=== PATIENT | female | born 1965 | race African-American/Black ===

== ENCOUNTER 2016-11-29 12:43 | Observation (INO) | payer SELFPAY ==
--- NOTE | 2016-11-29 15:42 | DR.H&P ---
H&P - History & Physical for Day of: H&P Date: 11/29/16 - Chief Complaint Chief Complaint: ABD PAIN WITH NAUSEA AND VOMITING - Allergies Allergies/Adverse Reactions: Allergies Allergy/AdvReac Type Severity Reaction Status Date / Time No Known Drug Allergy Allergy Verified 10/21/16 14:28 - History of Present Illness History of Present Illness: THE PATIENT IS A 51YO BF WHO PRESENTED TO [facility] WITH COMPLAINT OF ABDOMINAL PAIN WITH NAUSEA AND VOMITING WITH INABILITY TO KEEP ANYTHING DOWN INCLUDING MEDS SINCE LAST NIGHT. STATES SHE HAS BEEN TAKING PHENERGAN. STATES THAT SHE IS NOT EATING FOR FEAR OF PAIN AND NAUSEA. PATIENT COMPLAINS OF PAIN TO RUQ WITH PAIN GOING THROUGH TO BACK. BP 174 /128. DID IMPROVE TO 184/115 AFTER CLONIDINE 0.2MG . - Past Medical History Past Medical History: Depression, GERD, Hyperthyroidism Additional Medical History: RECURRENT ABD PAIN WITH NAUSEA AND VOMITING. - Past Surgical History Surgical History: , Hysterectomy - Family History Family Medical History: Hypertension - Social History Does patient currently use any type of tobacco product: No Have you used tobacco products in the last 12 months: No Type of Tobacco Use: None Does any household member use tobacco: No Alcohol Use: None Drug Use: None - Review of Systems Constitutional: Weakness, Malaise Eyes: No Symptoms Reported ENT: No Symptoms Reported Respiratory: No Symptoms Reported Cardiovascular: No Symptoms Reported Gastrointestinal: Nausea, Vomiting, Abdominal Pain Genitourinary: No Symptoms Reported Musculoskeletal: Leg Pain Skin: No Symptoms Reported Neurological: Numbness (TO RIGHT TOES) - Physical Exam Vital Signs: Blood Pressure [Right Arm] 136/85 Blood Pressure 136/85 Oriented: Normal Eyes: Normal Ear: Normal Nose: Normal Throat: Normal Respiratory: Clear Throughout Cardiovascular: Normal : Normal Auscultation: Bowel Sounds: Normal Palpation: Normal Tenderness: Diffuse, RUQ, Epigastric, Moderate Skin: Normal Musculoskeletal: Normal Psychiatric: Normal Mood Description: Appropriate Affect: Quiet Speech Pattern: Clear - Assessment/Plan (1) Nausea and vomiting Qualifiers: Vomiting type: V Vomiting Intractability: intractable Status: Acute Plan: LABS, KUB, US GB, PHENERGAN AND ZOFRAN IV (2) Hypertensive urgency Status: Acute Plan: IV ANTIHYPERTENSIVES (3) Abdominal pain Qualifiers: Abdominal location: right upper quadrant Qualified Code(s): R10.11 - Right upper quadrant pain Status: Acute Plan: LABS, KUB, US GB, PHENERGAN AND ZOFRAN IV
[2016-11-29 16:26] LABS: ALANINE AMINOTRANSFERASE 47 Units/L (12-78); ALBUMIN 3.6 g/dL (3.4-5.0); ALKALINE PHOSPHATASE 82 Units/L (46-116); AMYLASE 84 Units/L (25-115); ASPARTATE AMINO TRANSFERASE 39 Units/L (15-37); BLOOD UREA NITROGEN 14 mg/dL (7-18); CALCIUM 8.9 mg/dL (8.5-10.1); CARBON DIOXIDE 29.5 mmol/L (21-32); CHLORIDE 107 mmol/L (98-107); CREATININE 1.01 mg/dL (0.55-1.02); GLUCOSE 103 mg/dL (65-99); LIPASE 230 Units/L (73-393); SODIUM 144 mmol/L (136-145); TOTAL PROTEIN 7.2 g/dL (6.4-8.2); eGFR BLACK RACES > 60 (>60); eGFR NON BLACK RACES > 60 (>60)
[2016-11-29] MEDS: NS 1000 ML 1,000 ML IV SCH (16:29)
[2016-11-29] MEDS: PROTONIX INJ 40 MG VIAL 40 MG in NS 50 ML IV 50 ML IV SCH (16:29)
[2016-11-29] MEDS: PHENERGAN INJ 25 MG IVP PRN (16:30)
--- NOTE | 2016-11-29 16:35 | RAD ---
Acute abdominal series with single view chest Indication: Abdominal pain Comparison: CT 10/21/2016 Findings: A few air-fluid levels are seen on the upright view within the right abdomen. No marked sm all bowel dilation is appreciated, although there is a relative paucity small bowel gas, limiting ev aluation. Gas and stool is present within the normal caliber colon. No free air identified. The heart size is normal and the lungs are clear. Impression: Nonspecific air-fluid levels in the right hemiabdomen, with gas and stool in the normal caliber colo n. Low-grade partial distal small bowel obstruction cannot be excluded. Reported By:
[2016-11-29 16:47] LABS: BASOPHILS % (AUTO) 0.9 % (0.2-1.0); EOSINOPHILS # (AUTO) 0.1 x10^3/uL (0.0-0.2); HEMATOCRIT 36.8 % (36.0-47.0); HEMOGLOBIN 12.9 g/dL (12.0-16.0); LYMPHOCYTES # (AUTO) 2.3 X10^3/uL (1.3-2.9); LYMPHOCYTES % (AUTO) 46.2 % (21.0-51.0); MEAN CORPUSCULAR HEMOGLOBIN 30.1 pg (27.0-34.0); MEAN CORPUSCULAR HGB CONC 35.2 g/dL (33.0-35.0); MEAN CORPUSCULAR VOLUME 85.7 fL (80.0-100.0); MEAN PLATELET VOLUME 8.3 fL (7.4-11.0); MONOCYTES # (AUTO) 0.4 x10^3/uL (0.3-0.8); NEUTROPHILS % (AUTO) 41.9 % (42.0-75.0); PLATELET COUNT 201 X10^3/uL (150.0-450.0); RED BLOOD COUNT 4.29 X10^6/uL (3.5-5.4); RED CELL DISTRIBUTION WIDTH 15.1 % (11.6-16.5); WHITE BLOOD COUNT 4.9 X10^3/uL (3.6-10.0)
[2016-11-29 18:08] LABS: BILIRUBIN,URINE NEGATIVE (NEGATIVE); BLOOD/HEMOGLOBIN,URINE 2+ (NEGATIVE); GLUCOSE, URINE NEGATIVE (NEGATIVE); KETONES,URINE NEGATIVE (NEGATIVE); LEUKOCYTE ESTERASE ,URINE 1+ (NEGATIVE); NITRITES,URINE NEGATIVE (NEGATIVE); PROTEIN,URINE 1+ (NEGATIVE); UROBILINOGEN,URINE 1+ (NORMAL)
[2016-11-29 18:15] LABS: APPEARANCE,URINE HAZY (CLEAR); BACTERIA,URINE TRACE /HPF (NEGATIVE); COLOR,URINE YELLOW (YELLOW); RBC,URINE 0-2 /HPF (NEGATIVE); SQUAMOUS EPITHELIAL CELL,UR RARE /HPF (NEGATIVE)
[2016-11-29] MEDS: MORPHINE SULFATE INJ 2 MG IVP PRN (20:23)
[2016-11-29] MEDS: ZOFRAN INJ 4 MG VIAL IVP PRN (20:24)
[2016-11-29] MEDS ORDERED: NORMODYNE INJ 20 MG VIAL ONE ×2 (22:56→23:29)
[2016-11-29] MEDS: NORMODYNE INJ 20 MG VIAL IV PRN ×4 (23:00→23:55)
[2016-11-30] MEDS: NORMODYNE INJ 20 MG VIAL IV PRN ×5 (00:10→08:54)
[2016-11-30] MEDS ORDERED: NORMODYNE INJ 20 MG VIAL ONE (00:43)
[2016-11-30] MEDS: MORPHINE SULFATE INJ 2 MG IVP PRN ×2 (02:40→08:54)
[2016-11-30] MEDS: PHENERGAN INJ 25 MG IVP PRN ×3 (02:41→16:52)
--- NOTE | 2016-11-30 06:16 | US ---
HISTORY: Right upper quadrant pain Study: Right upper quadrant ultrasound Comparison: None Technique: Multiple grayscale sonographic images were obtained. Findings: Liver was normal in size and configuration and without focal cyst, mass, or biliary ductal dilatatio n. No gallstones are present within the gallbladder. Gallbladder wall thickness was normal. The comm on duct measured 3.9 millimeters. The right kidney was unobstructed. The head and body of the pancre as were normal. The tail was obscured by overlying bowel gas. IMPRESSION: No significant abnormality identified Reported By:
[2016-11-30] MEDS: NS 1000 ML 1,000 ML IV SCH ×3 (06:27→19:25)
[2016-11-30] MEDS: ZOFRAN INJ 4 MG VIAL IVP PRN (08:53)
[2016-11-30] MEDS: PROTONIX INJ 40 MG VIAL 40 MG in NS 50 ML IV 50 ML IV SCH (08:53)
[2016-11-30] MEDS: ROCEPHIN VIAL 1 GM 1 GM in NS 50 ML IV + SPIKE MINIBAG* 50 ML IV SCH (10:09)
[2016-11-30] MEDS ORDERED: ZESTRIL TAB 20 MG PO ONE (10:31)
[2016-11-30 10:55] LABS: BASOPHILS # (AUTO) 0.1 X10^3/uL (0.0-0.1); BASOPHILS % (AUTO) 1.1 % (0.2-1.0); EOSINOPHILS # (AUTO) 0.1 x10^3/uL (0.0-0.2); EOSINOPHILS % (AUTO) 1.6 % (0.9-2.9); HEMATOCRIT 34.3 % (36.0-47.0); HEMOGLOBIN 12.2 g/dL (12.0-16.0); LYMPHOCYTES # (AUTO) 2.1 X10^3/uL (1.3-2.9); LYMPHOCYTES % (AUTO) 43.9 % (21.0-51.0); MEAN CORPUSCULAR HEMOGLOBIN 30.3 pg (27.0-34.0); MEAN CORPUSCULAR HGB CONC 35.5 g/dL (33.0-35.0); MEAN CORPUSCULAR VOLUME 85.4 fL (80.0-100.0); MEAN PLATELET VOLUME 8.1 fL (7.4-11.0); MONOCYTES # (AUTO) 0.5 x10^3/uL (0.3-0.8); MONOCYTES % (AUTO) 9.6 % (0.0-13.0); NEUTROPHILS # (AUTO) 2.1 x10^3/uL (2.2-4.8); NEUTROPHILS % (AUTO) 43.8 % (42.0-75.0); PLATELET COUNT 167 X10^3/uL (150.0-450.0); RED BLOOD COUNT 4.02 X10^6/uL (3.5-5.4); RED CELL DISTRIBUTION WIDTH 15.4 % (11.6-16.5); WHITE BLOOD COUNT 4.8 X10^3/uL (3.6-10.0)
[2016-11-30 11:09] LABS: ALANINE AMINOTRANSFERASE 36 Units/L (12-78); ALBUMIN 3.1 g/dL (3.4-5.0); ALKALINE PHOSPHATASE 66 Units/L (46-116); ASPARTATE AMINO TRANSFERASE 26 Units/L (15-37); BLOOD UREA NITROGEN 10 mg/dL (7-18); CALCIUM 8.2 mg/dL (8.5-10.1); CARBON DIOXIDE 25.4 mmol/L (21-32); CHLORIDE 108 mmol/L (98-107); COR CA(FOR HYPOALB) 8.9 mg/dL (8.5-10.1); CREATININE 0.86 mg/dL (0.55-1.02); GLUCOSE 93 mg/dL (65-99); MAGNESIUM 1.5 mg/dL (1.7-2.9); SODIUM 143 mmol/L (136-145); TOTAL PROTEIN 6.1 g/dL (6.4-8.2); eGFR BLACK RACES > 60 (>60); eGFR NON BLACK RACES > 60 (>60)
[2016-11-30] MEDS ORDERED: ZESTRIL TAB 20 MG ONE (11:16)
[2016-11-30] MEDS ORDERED: CATAPRES TAB 0.1 MG PO SCH (12:00)
--- NOTE | 2016-11-30 13:28 | RAD ---
HISTORY: Hypertensive urgency. Epigastric pain. Study: Chest one view Comparison: Acute abdominal series from November 29, 2016. Findings: The trachea is midline. The cardiac silhouette is enlarged. The lungs are clear without focal infi ltrate or effusion. The bony thorax is unremarkable. IMPRESSION: 1. No acute pulmonary abnormality. 2. Cardiomegaly. Reported By:
--- NOTE | 2016-11-30 13:32 | RAD ---
AP abdomen Indication: Right upper quadrant and epigastric pain. Comparison: 11/29/2016 Findings: The bowel gas pattern is normal. Stool and gas is present within the normal caliber colon. No free air is seen. Impression: No acute abdominal process. Reported By:
[2016-11-30] MEDS: LEVSIN/MAALOX/LIDOC VISC PO PRN ×2 (14:13→17:46)
[2016-11-30] MEDS ORDERED: PHENERGAN INJ 25 MG ONE (16:47)
[2016-11-30] MEDS: NORCO 7.5/325 MG TAB PO PRN ×2 (16:53→23:41)
[2016-11-30] MEDS ORDERED: LEVSIN/MAALOX/LIDOC VISC ONE (17:42)
[2016-11-30] MEDS: K-DUR TAB 20 MEQ PO SCH (17:46)
[2016-11-30] MEDS: CATAPRES TAB 0.1 MG PO SCH ×2 (17:46→20:50)
[2016-11-30 17:55] VITALS: BMI 17.2
--- NOTE | 2016-11-30 18:24 | PCM.PROG ---
Progress Note - Progress Note for Day of Date: 12/07/16 - Subjective Subjective: Patient continues to complain of epigastric pain. Patient is a 51- year-old black female who was admitted one day ago for a GI workup including gallbladder ultrasound and HIDA scan. Patient has had complaints of epigastric pain for several weeks treated for GERD without improvement. Patient also has malignant hypertension currently receiving IV labetalol as well as by mouth lisinopril and Catapres. Plan to obtain an EKG and chest x-ray. Patient scheduled for HIDA scan every morning. We'll repeat a.m. labs and continue pain and blood pressure monitoring - Past Medical Family Social History Past Med/Fam/Surg Hx: No changes since H&P Allergies: Allergies No Known Drug Allergy Allergy (Verified 10/21/16 14:28) - Review of Systems ROS: No change since H&P - Vital Signs and I&O's Vital Signs: Temperature 98 F Pulse Rate [Left Brachial] 74 Respiratory Rate 18 Blood Pressure [Left Arm] 157/91 Blood Pressure [Right Arm] 165/104 Blood Pressure 136/85 O2 Sat by Pulse Oximetry 97 Intake and Output: Intake & Output 11/28/16 11/29/16 11/30/16 12/01/16 11:59 11:59 11:59 11:59 Intake Total 1490 850 Output Total 4 Balance 1486 850 - Physical Exam Oriented: Normal Eyes: Normal Ear: Normal Nose: Normal Throat: Normal Respiratory: Wheezes (mild lower exp wheezes) Cardiovascular: Normal : Normal Auscultation: Bowel Sounds: Normal Tenderness: Diffuse, RUQ, Epigastric, Moderate Skin: Normal Musculoskeletal: Normal Psychiatric: Normal Mood Description: Appropriate Affect: Quiet Speech Pattern: Clear, Appropriate, Unclear - Laboratory and Diagnostics Result Diagrams: 11/30/16 10:45 11/30/16 10:45 Labs: Laboratory WBC 4.8 X10^3/uL (3.6-10.0) 11/30/16 10:45 RBC 4.02 X10^6/uL (3.5-5.4) 11/30/16 10:45 Hgb 12.2 g/dL (12.0-16.0) 11/30/16 10:45 Hct 34.3 % (36.0-47.0) L 11/30/16 10:45 MCV 85.4 fL (80.0-100.0) 11/30/16 10:45 MCH 30.3 pg (27.0-34.0) 11/30/16 10:45 MCHC 35.5 g/dL (33.0-35.0) H 11/30/16 10:45 RDW 15.4 % (11.6-16.5) 11/30/16 10:45 Plt Count 167 X10^3/uL (150.0-450.0) 11/30/16 10:45 MPV 8.1 fL (7.4-11.0) 11/30/16 10:45 Neut % 43.8 % (42.0-75.0) 11/30/16 10:45 Lymph % 43.9 % (21.0-51.0) 11/30/16 10:45 [place] % 9.6 % (0.0-13.0) 11/30/16 10:45 Eos % 1.6 % (0.9-2.9) 11/30/16 10:45 Baso % 1.1 % (0.2-1.0) H 11/30/16 10:45 Neut # 2.1 x10^3/uL (2.2-4.8) L 11/30/16 10:45 Lymph # 2.1 X10^3/uL (1.3-2.9) 11/30/16 10:45 [place] # 0.5 x10^3/uL (0.3-0.8) 11/30/16 10:45 Eos # 0.1 x10^3/uL (0.0-0.2) 11/30/16 10:45 Baso # 0.1 X10^3/uL (0.0-0.1) 11/30/16 10:45 Absolute Nucleated RBC 0.1 /100WBC 11/30/16 10:45 Sodium 143 mmol/L (136-145) 11/30/16 10:45 Corrected Sodium TNP 11/30/16 10:45 Potassium 3.5 mmol/L (3.5-5.1) 11/30/16 10:45 Chloride 108 mmol/L (98-107) H 11/30/16 10:45 Carbon Dioxide 25.4 mmol/L (21-32) 11/30/16 10:45 BUN 10 mg/dL (7-18) 11/30/16 10:45 Creatinine 0.86 mg/dL (0.55-1.02) 11/30/16 10:45 Est GFR (MDRD) Af Amer > 60 (>60) 11/30/16 10:45 Est GFR (MDRD) Non-Af > 60 (>60) 11/30/16 10:45 Glucose 93 mg/dL (65-99) 11/30/16 10:45 Calcium 8.2 mg/dL (8.5-10.1) L 11/30/16 10:45 Corrected Calcium 8.9 mg/dL (8.5-10.1) 11/30/16 10:45 Magnesium 1.5 mg/dL (1.7-2.9) L 11/30/16 10:45 Total Bilirubin 0.40 mg/dL (0.2-1.0) 11/30/16 10:45 AST 26 Units/L (15-37) 11/30/16 10:45 ALT 36 Units/L (12-78) 11/30/16 10:45 Alkaline Phosphatase 66 Units/L (46-116) 11/30/16 10:45 Total Protein 6.1 g/dL (6.4-8.2) L 11/30/16 10:45 Albumin 3.1 g/dL (3.4-5.0) L 11/30/16 10:45 Globulin 3.0 g/dL (2.5-4.5) 11/30/16 10:45 Albumin/Globulin Ratio 1.0 Ratio (1.1-2.1) L 11/30/16 10:45 Amylase 84 Units/L (25-115) 11/29/16 16:00 Lipase 230 Units/L (73-393) 11/29/16 16:00 Specimen Type Clean catch urine 11/29/16 17:56 Urine Color Yellow (YELLOW) 11/29/16 17:56 Urine Appearance Hazy (CLEAR) 11/29/16 17:56 Urine pH 6.0 (5.0 - 8.0) 11/29/16 17:56 Ur Specific [place] 1.020 (1.000-1.030) 11/29/16 17:56 Urine Protein 1+ (NEGATIVE) 11/29/16 17:56 Urine Glucose (UA) Negative (NEGATIVE) 11/29/16 17:56 Urine Ketones Negative (NEGATIVE) 11/29/16 17:56 Urine Occult Blood 2+ (NEGATIVE) 11/29/16 17:56 Urine Nitrite Negative (NEGATIVE) 11/29/16 17:56 Urine Bilirubin Negative (NEGATIVE) 11/29/16 17:56 Urine Urobilinogen 1+ (NORMAL) 11/29/16 17:56 Ur Leukocyte Esterase 1+ (NEGATIVE) 11/29/16 17:56 Urine RBC 0-2 /HPF (NEGATIVE) 11/29/16 17:56 Urine WBC 0-2 /HPF (NEGATIVE) 11/29/16 17:56 Ur Squamous Epith Cells Rare /HPF (NEGATIVE) 11/29/16 17:56 Urine Bacteria Trace /HPF (NEGATIVE) 11/29/16 17:56 Ur Culture Indicated? No/not indicated 11/29/16 17:56 - Plan (1) Abdominal pain Status: Acute Qualifiers: Abdominal location: right upper quadrant Qualified Code(s): R10.11 - Right upper quadrant pain Plan: AM LABS, HIDA SCAN Q AM. PHENERGAN AND ZOFRAN IV (2) Hypertensive urgency Status: Acute Plan: IV ANTIHYPERTENSIVES (3) Nausea and vomiting Status: Acute Qualifiers: Vomiting type: V Vomiting Intractability: intractable Plan: PHENERGAN AND ZOFRAN IV (4) GERD (gastroesophageal reflux disease) Status: Acute Qualifiers: Esophagitis presence: E Plan: CONTINUE PROTONIX AND GI COCKTAIL
[2016-11-30] MEDS: NORVASC TAB 5 MG PO SCH (19:24)
[2016-11-30] MEDS: NEURONTIN CAP 100 MG PO SCH (20:53)
[2016-12-01] MEDS: CATAPRES TAB 0.1 MG PO SCH ×4 (03:38→20:38)
[2016-12-01] MEDS: NS 1000 ML 1,000 ML IV SCH ×2 (05:14→21:08)
[2016-12-01] MEDS ORDERED: LEVSIN/MAALOX/LIDOC VISC ONE (05:37)
[2016-12-01] MEDS ORDERED: PHENERGAN INJ 25 MG ONE (05:37)
[2016-12-01] MEDS: LEVSIN/MAALOX/LIDOC VISC PO PRN (05:45)
[2016-12-01] MEDS: PHENERGAN INJ 25 MG IVP PRN ×2 (05:45→19:54)
[2016-12-01 06:20] LABS: BASOPHILS # (AUTO) 0.1 X10^3/uL (0.0-0.1); BASOPHILS % (AUTO) 1.4 % (0.2-1.0); EOSINOPHILS # (AUTO) 0.1 x10^3/uL (0.0-0.2); EOSINOPHILS % (AUTO) 3.2 % (0.9-2.9); LYMPHOCYTES # (AUTO) 1.7 X10^3/uL (1.3-2.9); MEAN CORPUSCULAR HEMOGLOBIN 30.5 pg (27.0-34.0); MEAN CORPUSCULAR HGB CONC 35.4 g/dL (33.0-35.0); MEAN CORPUSCULAR VOLUME 86.2 fL (80.0-100.0); MEAN PLATELET VOLUME 8.4 fL (7.4-11.0); MONOCYTES # (AUTO) 0.4 x10^3/uL (0.3-0.8); MONOCYTES % (AUTO) 7.8 % (0.0-13.0); NEUTROPHILS # (AUTO) 2.3 x10^3/uL (2.2-4.8); NEUTROPHILS % (AUTO) 49.6 % (42.0-75.0); PLATELET COUNT 160 X10^3/uL (150.0-450.0); RED BLOOD COUNT 3.94 X10^6/uL (3.5-5.4); RED CELL DISTRIBUTION WIDTH 15.4 % (11.6-16.5); WHITE BLOOD COUNT 4.6 X10^3/uL (3.6-10.0)
[2016-12-01 06:36] LABS: ALANINE AMINOTRANSFERASE 39 Units/L (12-78); ALKALINE PHOSPHATASE 65 Units/L (46-116); ASPARTATE AMINO TRANSFERASE 25 Units/L (15-37); BLOOD UREA NITROGEN 7 mg/dL (7-18); CALCIUM 8.1 mg/dL (8.5-10.1); CARBON DIOXIDE 25.2 mmol/L (21-32); CHLORIDE 109 mmol/L (98-107); COR CA(FOR HYPOALB) 8.9 mg/dL (8.5-10.1); CREATININE 0.75 mg/dL (0.55-1.02); GLUCOSE 103 mg/dL (65-99); SODIUM 142 mmol/L (136-145); TOTAL PROTEIN 6.1 g/dL (6.4-8.2); eGFR BLACK RACES > 60 (>60); eGFR NON BLACK RACES > 60 (>60)
[2016-12-01] MEDS ORDERED: PATIENT'S HOME MEDICATION RESPIRATORY (Potassium Chloride [Potassium Chloride Er] 20 MEQ) PO SCH (09:00)
[2016-12-01] MEDS: NORCO 7.5/325 MG TAB PO PRN (11:41)
[2016-12-01] MEDS: ROCEPHIN VIAL 1 GM 1 GM in NS 50 ML IV + SPIKE MINIBAG* 50 ML IV SCH (11:42)
[2016-12-01] MEDS: NORVASC TAB 5 MG PO SCH (11:43)
[2016-12-01] MEDS: PROTONIX INJ 40 MG VIAL 40 MG in NS 50 ML IV 50 ML IV SCH (11:43)
[2016-12-01] MEDS: NEURONTIN CAP 100 MG PO SCH ×2 (11:43→20:38)
[2016-12-01] MEDS ORDERED: ZOFRAN INJ 4 MG VIAL 16 MG, ATIVAN INJ 2 MG VIAL 1 MG, DECADRON INJ 10 MG in NS 50 ML I... IV PRN (12:53)
--- NOTE | 2016-12-01 14:12 | NM ---
Indication: Pain. Exam: HIDA scan with ejection fraction . Technique: The patient was injected with 5 mCi of technetium 99 M Choletec IV with dynamic and delay ed images obtained. The patient was given 8 oz of Ensure for the ejection fraction. Findings: There is physiologic uptake throughout the liver with uptake in the gallbladder and small bowel within 1 hr. No focal defects are seen in the liver. The gallbladder ejection fraction was baltazar culated at 12% with normal considered greater than 50%. Impression: Markedly decreased gallbladder ejection fraction otherwise, unremarkable. Reported By:
[2016-12-01] MEDS ORDERED: LR 1000 ML IV 1,000 ML IV ONE (16:03)
[2016-12-01] MEDS ORDERED: DIPRIVAN VIAL ONE (16:08)
[2016-12-01] MEDS ORDERED: VERSED ONE (16:08)
[2016-12-01] MEDS ORDERED: ROBINUL ONE (16:08)
[2016-12-01] MEDS ORDERED: SUPRANE IN ONE (16:08)
[2016-12-01] MEDS ORDERED: NEOSTIGMINE INJ ONE (16:08)
[2016-12-01] MEDS ORDERED: REGLAN INJ 10 MG VIAL ONE (16:08)
[2016-12-01] MEDS ORDERED: NORMODYNE INJ 100 MG VIAL ONE (16:08)
[2016-12-01] MEDS ORDERED: NORCURON INJ 10 MG VIAL ONE (16:08)
[2016-12-01] MEDS ORDERED: DYLOJECT INJ ONE (16:08)
[2016-12-01] MEDS ORDERED: XYLOCAINE 2 % (PLAIN) ONE (16:08)
[2016-12-01] MEDS ORDERED: ZOFRAN INJ 4 MG VIAL ONE (16:08)
[2016-12-01] MEDS ORDERED: QUELICIN (OR ANECTINE) ONE (16:08)
[2016-12-01] MEDS ORDERED: FENTANYL INJ 250 mcg ONE (16:15)
[2016-12-01] MEDS: ANCEF VIAL 1 GM ONE ×2 (16:27→16:55)
[2016-12-01] MEDS: MARCAINE 0.25% WITH EPI IJ ONE ×2 (16:28→17:18)
[2016-12-01] MEDS: XYLOCAINE 1 % (PLAIN) ONE ×2 (16:28→17:18)
[2016-12-01] MEDS: NS 50 ML IV + SPIKE MINIBAG* 50 ML IV ONE ×2 (16:29→16:55)
[2016-12-01] MEDS ORDERED: NS IRRIGATION 1000 ML 1,000 ML IR ONE (17:34)
--- NOTE | 2016-12-01 17:56 | PCM.PROG ---
Progress Note - Progress Note for Day of Date: 12/01/16 - Subjective Subjective: Patient continues to complain of epigastric pain and food intolerance. pt had HIDA scan this am, continue to keep pt NPO until results are back. - Past Medical Family Social History Past Med/Fam/Surg Hx: No changes since H&P Allergies: Allergies No Known Drug Allergy Allergy (Verified 10/21/16 14:28) - Review of Systems ROS: No change since H&P - Vital Signs and I&O's Vital Signs: Temperature 97.9 F Pulse Rate [Left Brachial] 76 Respiratory Rate 20 Blood Pressure [Left Arm] 138/88 Blood Pressure [Right Arm] 165/104 Blood Pressure 136/85 O2 Sat by Pulse Oximetry 100 Intake and Output: Intake & Output 11/29/16 11/30/16 12/01/16 12/02/16 11:59 11:59 11:59 11:59 Intake Total 1490 2990 880 Output Total 4 Balance 1486 2990 880 - Physical Exam Oriented: Normal Eyes: Normal Ear: Normal Nose: Normal Throat: Normal Respiratory: Normal Cardiovascular: Normal : Normal Auscultation: Bowel Sounds: Normal Tenderness: Diffuse, RUQ, Epigastric, Moderate Skin: Normal Musculoskeletal: Normal Psychiatric: Normal Mood Description: Appropriate Affect: Quiet Speech Pattern: Clear, Appropriate - Laboratory and Diagnostics Result Diagrams: 12/01/16 05:45 12/01/16 05:45 Labs: Laboratory WBC 4.6 X10^3/uL (3.6-10.0) 12/01/16 05:45 RBC 3.94 X10^6/uL (3.5-5.4) 12/01/16 05:45 Hgb 12.0 g/dL (12.0-16.0) 12/01/16 05:45 Hct 34.0 % (36.0-47.0) L 12/01/16 05:45 MCV 86.2 fL (80.0-100.0) 12/01/16 05:45 MCH 30.5 pg (27.0-34.0) 12/01/16 05:45 MCHC 35.4 g/dL (33.0-35.0) H 12/01/16 05:45 RDW 15.4 % (11.6-16.5) 12/01/16 05:45 Plt Count 160 X10^3/uL (150.0-450.0) 12/01/16 05:45 MPV 8.4 fL (7.4-11.0) 12/01/16 05:45 Neut % 49.6 % (42.0-75.0) 12/01/16 05:45 Lymph % 38.0 % (21.0-51.0) 12/01/16 05:45 [place] % 7.8 % (0.0-13.0) 12/01/16 05:45 Eos % 3.2 % (0.9-2.9) H 12/01/16 05:45 Baso % 1.4 % (0.2-1.0) H 12/01/16 05:45 Neut # 2.3 x10^3/uL (2.2-4.8) 12/01/16 05:45 Lymph # 1.7 X10^3/uL (1.3-2.9) 12/01/16 05:45 [place] # 0.4 x10^3/uL (0.3-0.8) 12/01/16 05:45 Eos # 0.1 x10^3/uL (0.0-0.2) 12/01/16 05:45 Baso # 0.1 X10^3/uL (0.0-0.1) 12/01/16 05:45 Absolute Nucleated RBC 0.0 /100WBC 12/01/16 05:45 Sodium 142 mmol/L (136-145) 12/01/16 05:45 Corrected Sodium TNP 12/01/16 05:45 Potassium 3.4 mmol/L (3.5-5.1) L 12/01/16 05:45 Chloride 109 mmol/L (98-107) H 12/01/16 05:45 Carbon Dioxide 25.2 mmol/L (21-32) 12/01/16 05:45 BUN 7 mg/dL (7-18) 12/01/16 05:45 Creatinine 0.75 mg/dL (0.55-1.02) 12/01/16 05:45 Est GFR (MDRD) Af Amer > 60 (>60) 12/01/16 05:45 Est GFR (MDRD) Non-Af > 60 (>60) 12/01/16 05:45 Glucose 103 mg/dL (65-99) H 12/01/16 05:45 Calcium 8.1 mg/dL (8.5-10.1) L 12/01/16 05:45 Corrected Calcium 8.9 mg/dL (8.5-10.1) 12/01/16 05:45 Magnesium 1.5 mg/dL (1.7-2.9) L 11/30/16 10:45 Total Bilirubin 0.50 mg/dL (0.2-1.0) 12/01/16 05:45 AST 25 Units/L (15-37) 12/01/16 05:45 ALT 39 Units/L (12-78) 12/01/16 05:45 Alkaline Phosphatase 65 Units/L (46-116) 12/01/16 05:45 Total Protein 6.1 g/dL (6.4-8.2) L 12/01/16 05:45 Albumin 3.0 g/dL (3.4-5.0) L 12/01/16 05:45 Globulin 3.1 g/dL (2.5-4.5) 12/01/16 05:45 Albumin/Globulin Ratio 1.0 Ratio (1.1-2.1) L 12/01/16 05:45 Amylase 84 Units/L (25-115) 11/29/16 16:00 Lipase 230 Units/L (73-393) 11/29/16 16:00 Specimen Type Clean catch urine 11/29/16 17:56 Urine Color Yellow (YELLOW) 11/29/16 17:56 Urine Appearance Hazy (CLEAR) 11/29/16 17:56 Urine pH 6.0 (5.0 - 8.0) 11/29/16 17:56 Ur Specific [place] 1.020 (1.000-1.030) 11/29/16 17:56 Urine Protein 1+ (NEGATIVE) 11/29/16 17:56 Urine Glucose (UA) Negative (NEGATIVE) 11/29/16 17:56 Urine Ketones Negative (NEGATIVE) 11/29/16 17:56 Urine Occult Blood 2+ (NEGATIVE) 11/29/16 17:56 Urine Nitrite Negative (NEGATIVE) 11/29/16 17:56 Urine Bilirubin Negative (NEGATIVE) 04/04/17 17:56 Urine Urobilinogen 1+ (NORMAL) 11/29/16 17:56 Ur Leukocyte Esterase 1+ (NEGATIVE) 11/29/16 17:56 Urine RBC 0-2 /HPF (NEGATIVE) 11/29/16 17:56 Urine WBC 0-2 /HPF (NEGATIVE) 11/29/16 17:56 Ur Squamous Epith Cells Rare /HPF (NEGATIVE) 11/29/16 17:56 Urine Bacteria Trace /HPF (NEGATIVE) 11/29/16 17:56 Ur Culture Indicated? No/not indicated 11/29/16 17:56 Stool Description 50g,brown,formed 11/30/16 19:08 Stl Occult Blood (IFOB) Negative (NEGATIVE) 11/30/16 19:08 - Plan (1) Abdominal pain Status: Acute Qualifiers: Abdominal location: right upper quadrant Qualified Code(s): R10.11 - Right upper quadrant pain Plan: ssuspect biliary dyskinesia, continue nothing by mouth status, HIDA scan this a.m. plan to consult surgeon, Dr. Saunders, if abnormal findings. She needed IV hydration, pain and nausea control (2) Hypertensive urgency Status: Acute Plan: IV ANTIHYPERTENSIVES (3) Nausea and vomiting Status: Acute Qualifiers: Vomiting type: V Vomiting Intractability: intractable Plan: PHENERGAN AND ZOFRAN IV (4) GERD (gastroesophageal reflux disease) Status: Chronic Qualifiers: Esophagitis presence: E Plan: CONTINUE PROTONIX AND GI COCKTAIL
[2016-12-01] MEDS: DILAUDID INJ IVP PRN ×2 (18:10→18:15)
[2016-12-01] MEDS ORDERED: REGLAN INJ 10 MG VIAL IVP PRN (18:10)
[2016-12-01] MEDS ORDERED: ZOFRAN INJ 4 MG VIAL IVP PRN (18:10)
[2016-12-01] MEDS ORDERED: BENADRYL INJ 50 MG VIAL IVP PRN (18:10)
[2016-12-01] MEDS ORDERED: PHENERGAN INJ 25 MG IVP PRN (18:10)
[2016-12-01] MEDS: MORPHINE SULFATE INJ 2 MG IVP PRN (19:56)
[2016-12-01] MEDS: K-DUR TAB 20 MEQ PO SCH (21:08)
[2016-12-02] MEDS ORDERED: HEPARIN SODIUM INJ 5000 UNITS IVP SCH (00:01)
[2016-12-02] MEDS: MORPHINE SULFATE INJ 2 MG IVP PRN ×2 (00:22→05:32)
[2016-12-02] MEDS: HEPARIN SODIUM INJ 5000 UNITS SC SCH ×2 (01:12→05:27)
[2016-12-02] MEDS: PHENERGAN INJ 25 MG IVP PRN (02:33)
[2016-12-02] MEDS: CATAPRES TAB 0.1 MG PO SCH ×3 (02:33→14:01)
[2016-12-02 06:59] LABS: ALANINE AMINOTRANSFERASE 63 Units/L (12-78); ALBUMIN 3.5 g/dL (3.4-5.0); ALKALINE PHOSPHATASE 76 Units/L (46-116); ASPARTATE AMINO TRANSFERASE 44 Units/L (15-37); BLOOD UREA NITROGEN 12 mg/dL (7-18); CALCIUM 9.3 mg/dL (8.5-10.1); CHLORIDE 103 mmol/L (98-107); COR NA(FOR HYPERGLY) 138 mmol/L (136-145); CREATININE 0.92 mg/dL (0.55-1.02); GLUCOSE 120 mg/dL (65-99); SODIUM 138 mmol/L (136-145); TOTAL PROTEIN 7.1 g/dL (6.4-8.2); eGFR BLACK RACES > 60 (>60); eGFR NON BLACK RACES > 60 (>60)
[2016-12-02 07:07] LABS: BASOPHILS # (AUTO) 0.1 X10^3/uL (0.0-0.1); BASOPHILS % (AUTO) 0.8 % (0.2-1.0); EOSINOPHILS % (AUTO) 0.2 % (0.9-2.9); HEMATOCRIT 38.7 % (36.0-47.0); HEMOGLOBIN 13.5 g/dL (12.0-16.0); LYMPHOCYTES # (AUTO) 1.4 X10^3/uL (1.3-2.9); LYMPHOCYTES % (AUTO) 22.7 % (21.0-51.0); MEAN CORPUSCULAR HEMOGLOBIN 30.3 pg (27.0-34.0); MEAN CORPUSCULAR HGB CONC 34.9 g/dL (33.0-35.0); MEAN CORPUSCULAR VOLUME 86.9 fL (80.0-100.0); MEAN PLATELET VOLUME 8.6 fL (7.4-11.0); MONOCYTES # (AUTO) 0.4 x10^3/uL (0.3-0.8); MONOCYTES % (AUTO) 6.5 % (0.0-13.0); NEUTROPHILS # (AUTO) 4.2 x10^3/uL (2.2-4.8); NEUTROPHILS % (AUTO) 69.8 % (42.0-75.0); PLATELET COUNT 171 X10^3/uL (150.0-450.0); RED BLOOD COUNT 4.45 X10^6/uL (3.5-5.4); RED CELL DISTRIBUTION WIDTH 15.3 % (11.6-16.5); WHITE BLOOD COUNT 6.1 X10^3/uL (3.6-10.0)
[2016-12-02] MEDS: K-DUR TAB 20 MEQ PO SCH (08:29)
[2016-12-02] MEDS: NEURONTIN CAP 100 MG PO SCH (08:31)
[2016-12-02] MEDS: NORVASC TAB 5 MG PO SCH (08:35)
[2016-12-02] MEDS: PROTONIX INJ 40 MG VIAL 40 MG in NS 50 ML IV 50 ML IV SCH (08:35)
[2016-12-02] MEDS: ROCEPHIN VIAL 1 GM 1 GM in NS 50 ML IV + SPIKE MINIBAG* 50 ML IV SCH (08:36)
[2016-12-02] MEDS: PERCOCET TAB 5/325 MG PO PRN ×2 (08:39→13:57)
[2016-12-02 12:30] VITALS: BP 160/98
[2016-12-02] MEDS: NS 1000 ML 1,000 ML IV SCH (13:58)
--- NOTE | 2016-12-02 16:11 | PCM.DCPLAN ---
Discharge Summary - Admission Date Date of Admission: 11/29/16 - Discharge Date Discharge Date: 12/02/16 - Admission Diagnoses (1) Abdominal pain Status: Acute (2) Hypertensive urgency Status: Acute (3) Nausea and vomiting Status: Acute (4) GERD (gastroesophageal reflux disease) Status: Chronic - Discharge Diagnoses Discharge Diagnosis: same as admission - Discharge Medications Discharge Medications: Hydrocodone-Acet 7.5 mg/325 mg [NORCO 7.5 MG/325 MG *] 1 tab PO BID PRN [History] Omeprazole [PRILOSEC 20 MG *] 20 mg PO DAILY 11/30/16 [History] Promethazine HCl [PHENERGAN TAB 25 MG *] 25 mg PO Q6H PRN 11/30/16 [History] Amlodipine Besylate [NORVASC 5 MG *] 5 mg PO DAILY #30 tab 12/02/16 [Rx] Oxycodone/Acet 5 mg/325 mg [PERCOCET 5/325 MG *] 1 - 2 tab PO Q4-6H PRN #30 tab 12/02/16 [Rx] - Hospital Course Vital Signs: Temperature 97.7 F Pulse Rate [Left Brachial] 78 Pulse Rate 74 Respiratory Rate 18 Blood Pressure [Left Arm] 160/98 Blood Pressure [Right Arm] 165/104 Blood Pressure 169/96 O2 Sat by Pulse Oximetry 100 Latest Lab Results: Laboratory Last Values WBC 6.1 X10^3/uL (3.6-10.0) 12/02/16 05:15 RBC 4.45 X10^6/uL (3.5-5.4) 12/02/16 05:15 Hgb 13.5 g/dL (12.0-16.0) 12/02/16 05:15 Hct 38.7 % (36.0-47.0) 12/02/16 05:15 MCV 86.9 fL (80.0-100.0) 12/02/16 05:15 MCH 30.3 pg (27.0-34.0) 12/02/16 05:15 MCHC 34.9 g/dL (33.0-35.0) 12/02/16 05:15 RDW 15.3 % (11.6-16.5) 12/02/16 05:15 Plt Count 171 X10^3/uL (150.0-450.0) 12/02/16 05:15 MPV 8.6 fL (7.4-11.0) 12/02/16 05:15 Neut % 69.8 % (42.0-75.0) 12/02/16 05:15 Lymph % 22.7 % (21.0-51.0) 12/02/16 05:15 [place] % 6.5 % (0.0-13.0) 12/02/16 05:15 Eos % 0.2 % (0.9-2.9) L 12/02/16 05:15 Baso % 0.8 % (0.2-1.0) 12/02/16 05:15 Neut # 4.2 x10^3/uL (2.2-4.8) 12/02/16 05:15 Lymph # 1.4 X10^3/uL (1.3-2.9) 12/02/16 05:15 [place] # 0.4 x10^3/uL (0.3-0.8) 12/02/16 05:15 Eos # 0.0 x10^3/uL (0.0-0.2) 12/02/16 05:15 Baso # 0.1 X10^3/uL (0.0-0.1) 12/02/16 05:15 Absolute Nucleated RBC 0.1 /100WBC 12/02/16 05:15 Sodium 138 mmol/L (136-145) 12/02/16 05:15 Corrected Sodium 138 mmol/L (136-145) 12/02/16 05:15 Potassium 3.9 mmol/L (3.5-5.1) 12/02/16 05:15 Chloride 103 mmol/L (98-107) 12/02/16 05:15 Carbon Dioxide 24.0 mmol/L (21-32) 12/02/16 05:15 BUN 12 mg/dL (7-18) 12/02/16 05:15 Creatinine 0.92 mg/dL (0.55-1.02) 12/02/16 05:15 Est GFR (MDRD) Af Amer > 60 (>60) 12/02/16 05:15 Est GFR (MDRD) Non-Af > 60 (>60) 12/02/16 05:15 Glucose 120 mg/dL (65-99) H 12/02/16 05:15 Calcium 9.3 mg/dL (8.5-10.1) 12/02/16 05:15 Corrected Calcium TNP 12/02/16 05:15 Magnesium 1.5 mg/dL (1.7-2.9) L 11/30/16 10:45 Total Bilirubin 0.50 mg/dL (0.2-1.0) 12/02/16 05:15 AST 44 Units/L (15-37) H 12/02/16 05:15 ALT 63 Units/L (12-78) 12/02/16 05:15 Alkaline Phosphatase 76 Units/L (46-116) 12/02/16 05:15 Total Protein 7.1 g/dL (6.4-8.2) 12/02/16 05:15 Albumin 3.5 g/dL (3.4-5.0) 12/02/16 05:15 Globulin 3.6 g/dL (2.5-4.5) 12/02/16 05:15 Albumin/Globulin Ratio 1.0 Ratio (1.1-2.1) L 12/02/16 05:15 Amylase 84 Units/L (25-115) 11/29/16 16:00 Lipase 230 Units/L (73-393) 11/29/16 16:00 Specimen Type Clean catch urine 11/29/16 17:56 Urine Color Yellow (YELLOW) 11/29/16 17:56 Urine Appearance Hazy (CLEAR) 11/29/16 17:56 Urine pH 6.0 (5.0 - 8.0) 11/29/16 17:56 Ur Specific [place] 1.020 (1.000-1.030) 11/29/16 17:56 Urine Protein 1+ (NEGATIVE) 11/29/16 17:56 Urine Glucose (UA) Negative (NEGATIVE) 11/29/16 17:56 Urine Ketones Negative (NEGATIVE) 11/29/16 17:56 Urine Occult Blood 2+ (NEGATIVE) 11/29/16 17:56 Urine Nitrite Negative (NEGATIVE) 11/29/16 17:56 Urine Bilirubin Negative (NEGATIVE) 11/29/16 17:56 Urine Urobilinogen 1+ (NORMAL) 11/29/16 17:56 Ur Leukocyte Esterase 1+ (NEGATIVE) 11/29/16 17:56 Urine RBC 0-2 /HPF (NEGATIVE) 11/29/16 17:56 Urine WBC 0-2 /HPF (NEGATIVE) 11/29/16 17:56 Ur Squamous Epith Cells Rare /HPF (NEGATIVE) 11/29/16 17:56 Urine Bacteria Trace /HPF (NEGATIVE) 11/29/16 17:56 Ur Culture Indicated? No/not indicated 11/29/16 17:56 Stool Description 50g,brown,formed 11/30/16 19:08 Stl Occult Blood (IFOB) Negative (NEGATIVE) 11/30/16 19:08 Tissue Pathology To follow 12/01/16 17:43 Hospital Course: patient is a 51-year-old black female who was admitted from her [place] office with complaints of abdominal pain nausea vomiting weakness. Patient complains of ongoing illness of upper abdominal pain worse after meals and food intolerance patient has experienced significant weight loss over the last year patient was previously admitted with CT of abdomen and pelvis which was stable for acute abdominal findings. Patient has been taken by mouth medication for GERD without improvement. Patient had a gallbladder ultrasound followed by a HIDA scan which was abnormal. Dr. Georges, surgeon consult for laparoscopic cholecystectomy. Patient status post laparoscopic cholecystectomy one day with control pain. Patient is eating bland diet without nausea and vomiting. Patient will be discharged home today to resume home medications as well as follow a postop surgical plan of care per Dr. Georges. Patient was also given pain medication per Dr. Georges. While inpatient, her blood pressure was elevated above baseline. Patient was started on amlodipine 5 mg at bedtime which she will be discharged home on home to continue to take along with lisinopril 20 mg every morning. Patient was instructed to follow-up her primary care provider in one week as well as Dr. Georges as directed and postop instructions. Patient was also instructed to have an ENT follow-up due to anesthesia's recommendations after difficult intubation. Patient verbalized understanding - Discharge Plan Disposition: 01 HOME, SELF-CARE Condition: Stable Prescriptions: Amlodipine Besylate [NORVASC 5 MG *] 5 mg PO DAILY #30 tab Oxycodone/Acet 5 mg/325 mg [PERCOCET 5/325 MG *] 1 - 2 tab PO Q4-6H PRN #30 tab PRN Reason: Severe Pain - Follow ups/Referrals Follow ups/Referrals: ANALI GEORGES [CONSULTING PHYSICIAN] - PARMJIT BHATT [Primary Care Provider] - 1 WEEK - Instructions Instructions: Nausea and Vomiting, Adult, [id number], Abdominal Pain, Adult, [id number], Form - Blood Pressure Record Sheet, Laparoscopic Cholecystectomy, Care After, [id number], Hypertension, [id number], Amlodipine tablets, Managing Your High Blood Pressure Additional Instructions: resume home meds new rx for norvasc given rx for pain control per dr georges follow up with dr georges for post op follow up limit lifting, rest see ENT for throat evaluation on OP basis Forms: Patient Portal
== END 2016-12-02 14:51 | disposition home or self-care (01) ==
LOC: OBS 12:43
PROVIDERS: ADMIT Internal Medicine; ATTEND Internal Medicine
PROC: 0FT44ZZ Resection of Gallbladder, Percutaneous Endoscopic Approach (ICD-10-PCS; principal; 2016-12-01 16:00)
DX: R10.84 Generalized abdominal pain (principal); R11.2 Nausea with vomiting, unspecified; I16.0 Hypertensive urgency; K82.8 Other specified diseases of gallbladder; R94.31 Abnormal electrocardiogram [ECG] [EKG]; R10.11 Right upper quadrant pain; I51.7 Cardiomegaly
CPT/HCPCS: 36415; 71010; 74000; 74022; 76705; 78227; 80053; 81001; 82150; 82270; 83690; 83735; 85025; 87338; 93005; 93010; A4216; A4222; C9113; S0020; G0378; J0330; J0690; J0696; J1170; J1644; J2001; J2250; J2270; J2405; J2550; J2710; J2765; J3010; J3490; J7120